=== PATIENT | female | born 2000 | race Caucasian/White ===

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

== ENCOUNTER 2021-02-28 20:28 | Emergency (ER) | payer OTHER ==
[~2021-02-28] VITALS: Ht 160 cm; Wt 50.0 kg
[~2021-02-28 20:28] MED LIST: ACET-897 PO
[2021-02-28 20:30] VITALS: BP 119/68
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
== END 2021-03-01 00:09 | disposition left against medical advice (07) ==
LOC: M ED 20:28
DX: Z53.29 Procedure and treatment not carried out because of patient's decision for other reasons (principal)

== ENCOUNTER → 2021-03-25 | Outpatient (REF) | payer OTHER | LOC: M LAB REF 08:46 | PROVIDERS: ATTEND Pediatrics | DX: J06.9 Acute upper respiratory infection, unspecified (principal) ==

== ENCOUNTER → 2021-03-30 | Outpatient (REF) | payer OTHER | LOC: M LAB REF 09:53 | PROVIDERS: ATTEND Pediatrics | DX: Z03.818 Encounter for observation for suspected exposure to other biological agents ruled out (principal) ==

== ENCOUNTER → 2021-04-08 | Outpatient (REF) | payer OTHER | LOC: M LAB REF 11:57 | PROVIDERS: ATTEND Specialist | DX: J06.9 Acute upper respiratory infection, unspecified (principal) ==

== ENCOUNTER → 2021-07-27 | Outpatient (REF) | payer OTHER | LOC: M LAB REF 09:59 | PROVIDERS: ATTEND Pediatrics | DX: Z20.822 Contact with and (suspected) exposure to COVID-19 (principal) ==

== ENCOUNTER → 2021-08-05 | Outpatient (REF) | payer OTHER, SELFPAY | LOC: M LAB REF 14:20 | PROVIDERS: ATTEND Pediatrics | DX: Z20.822 Contact with and (suspected) exposure to COVID-19 (principal) ==

== ENCOUNTER → 2021-08-08 | Outpatient (REF) | payer OTHER, SELFPAY | LOC: M LAB REF 09:13 | PROVIDERS: ATTEND Pediatrics | DX: Z20.822 Contact with and (suspected) exposure to COVID-19 (principal) ==

== ENCOUNTER 2022-05-22 00:17 | Emergency (ER) | payer OTHER ==
[~2022-05-22] VITALS: Ht 160 cm; Wt 63.2 kg
[2022-05-22 00:18] VITALS: BP 138/60
== END 2022-05-22 00:58 | disposition left against medical advice (07) ==
LOC: M ED 00:17
DX: Z53.21 Procedure and treatment not carried out due to patient leaving prior to being seen by health care provider (principal)